=== PATIENT | male | born 1965 | race African-American/Black ===

== ENCOUNTER 2023-01-23 10:00 | Emergency (ER) | payer MEDICAID ==
[~2023-01-23] VITALS: Ht 167.6 cm; Wt 82.0 kg
[2023-01-23] MEDS ORDERED: T3 PO (12:24)
[2023-01-23] MEDS ORDERED: IBUP-2028 PO (12:24)
[2023-01-23 12:45] VITALS: BP 132/78
== END 2023-01-23 12:46 | disposition home or self-care (01) ==
LOC: ER 10:00
DX: S92.351A Displaced fracture of fifth metatarsal bone, right foot, initial encounter for closed fracture (principal); W18.39XA Other fall on same level, initial encounter; Y93.89 Activity, other specified; Y92.89 Other specified places as the place of occurrence of the external cause; Y99.8 Other external cause status; E11.9 Type 2 diabetes mellitus without complications; Z85.9 Personal history of malignant neoplasm, unspecified
CPT/HCPCS: 73560; 73620; 99284; Z7610